=== PATIENT | male | born 1965 | race Caucasian/White ===

== ENCOUNTER 2023-10-08 10:41 | Outpatient (CLI) | payer BC, SELFPAY ==
--- NOTE | ~2023-10-08 | XR_ITS ---
XR knee LT min 4V DATE: 10/08/2023 11:15 INDICATION: Left knee pain TECHNIQUE: [place], [place], [place] and lateral views COMPARISON: None FINDINGS: There is slight periarticular spurring of the patella. No fracture or dislocation or joint effusion. No periosteal reaction or bone destruction. No radiopaq ue intra-articular loose body or chondrocalcinosis. IMPRESSION: Slight patellofemoral osteoarthritis Reviewed, dictated and finalized at location A.
== END 2023-10-08 10:42 ==
LOC: MICIMG 10:42
PROVIDERS: PCP Family Medicine; Visit Provider Family Medicine
DX: M17.12 Unilateral primary osteoarthritis, left knee (principal); G89.29 Other chronic pain
CPT/HCPCS: 73564

== ENCOUNTER 2023-11-10 00:55 | Day surgery (SDC) | payer BC, SELFPAY ==
[2023-10-25 12:53] VITALS: BMI 28.3
[2023-11-10 07:57] VITALS: BP 127/95; PULSE 76; RESP 20; TEMP 36.4; O2SAT 99
[2023-11-10] MEDS: LACTATED RINGERS 1,000 ML 150 ML IV CONT (08:14)
--- NOTE | 2023-11-10 08:37 | P.PNAN_ITS ---
Anes - Initial Pre Proc Eval Procedure: Operation Date: 11/10/23 09:30 Proposed Procedures p Screening Colonoscopy - James Weber DO Date/Time: 11/10/23 08:37 Surgeon: James Weber DO Pre Op Diagnosis: Screening for malignant neoplasm of colon Patient Data Age: 57 Gender: M Height: 1.88 m Weight: 100.2 kg Last Vital Signs Temp 97.6 F 11/10/23 07:57 Pulse 76 11/10/23 07:57 Resp 20 11/10/23 07:57 BP 127/95 H 11/10/23 07:57 Pulse Ox 99 11/10/23 07:57 O2 Del Method Room Air 11/10/23 07:57 Allergies Allergy/AdvReac Type Severity Reaction Status Date / Time No Known Allergies Allergy Verified 11/10/23 07:56 Home Medications Medication Instructions Recorded Confirmed Type No Home Medications 10/25/23 10/25/23 History Patient hx anesthesia problems: none Family hx anesthesia problems: none Results Review: All pre-operative results and documents have been reviewed as part of the pre-op erative evaluation. [facility] Past Medical History Medical History Diverticulosis Normal colonoscopy 2013 Perirectal abscess Surgical History Surgical History History of rectal surgery Family History Family History Father Hypertension Lung cancer Mother No problems noted. Social History Social History (Updated 10/06/23 @ 08:51 by Ashley Lopez) Social History: Smoking status: Never smoker Tobacco type: cigarettes Second hand tobacco smoke exposure: No Smoking end date: 07/04/12 Alcohol intake: never Substance use: never Substance use type: does not use Do You Feel Safe in your Home?: Yes Lack of Transportation: No Lack of Food: Never True Current Housing: I Have Housing Concerned About Future Housing: No Difficulty Paying Gas/Electric Bills: No Difficulty Paying for Meds: No Currently Unemployed: No Education: Don't Know Difficulty w/ Childcare or Family Care: No Living arrangements: with family Occupation/Education: occupation Additional occupation/education comments: Self Employed Gender identity (if verbalized by the patient): Male Sexual Orientation (if Verbalized by the Patient): Straight or Heterosexual Spiritual care concerns: No Anes - Eval Final PreProcedure Day of Procedure 11/10/23 08:37 Patient weight: normal Heart: regular rate and rhythm Lungs: clear to auscultation Airway: Mallampati scale class II Neurological: alert and oriented Last oral intake: >/= 8 hours ASA classification: II Emergent: no Anesthetic plan: proceed Anesthesia type and monitoring: general GIVS and standard monitoring Results Review: All pre-operative results and documents have been reviewed as part of the pre- operative evaluation. Informed Consent: The patient's anesthetic plan and its attendant risks and benefits were discussed with the patient/family/POA. Questions were solicited and answers provided to the satisfaction of the patient/family/POA.
--- NOTE | 2023-11-10 09:18 | PM.IMHP ---
H&P: HPI History of Present Illness Date/Time: 11/10/23 09:18 Chief Complaint: screening for colorectal cancer Narrative: this is a 57-year-old man presents for colonoscopy. His last colonoscopy was about 10 years ago. Denies any hematochezia or melena. Denies family history cancer. Review of Systems Review of Systems: All systems reviewed & are unremarkable except as noted in HPI and below Constitutional: Constitutional: Denies chills, Denies fever(s), Denies headache(s) and Denies weight loss Eyes: Eyes: Denies change in vision ENT: Denies dizziness, Denies headache(s), Denies neck mass and Denies throat swelling Cardiovascular: Cardiovascular: Denies chest pain, Denies lightheadedness and Denies dyspnea Respiratory: Respiratory: Denies cough, Denies dyspnea and Denies wheezing Gastrointestinal: Gastrointestinal: Denies abdominal pain, Denies change in bowel habits, Denies nausea and Denies vomiting Genitourinary: Genitourinary: Denies hematuria and Denies dysuria Musculoskeletal: Musculoskeletal: Reports as per HPI Integumentary/Breasts: Skin/Breast: Reports as per HPI Neurologic: Denies dizziness and Denies headache(s) Allergic/Immunologic: Allergic/Immunologic: Denies throat swelling and Denies wheezing PMFSH Past Medical History Medical History Diverticulosis Normal colonoscopy 2013 Perirectal abscess Surgical History Surgical History History of rectal surgery Family History Family History Father Hypertension Lung cancer Mother No problems noted. Social History Social History (Updated 10/06/23 @ 08:51 by Ashley Lopez) Social History: Smoking status: Never smoker Tobacco type: cigarettes Second hand tobacco smoke exposure: No Smoking end date: 07/04/12 Alcohol intake: never Substance use: never Substance use type: does not use Do You Feel Safe in your Home?: Yes Lack of Transportation: No Lack of Food: Never True Current Housing: I Have Housing Concerned About Future Housing: No Difficulty Paying Gas/Electric Bills: No Difficulty Paying for Meds: No Currently Unemployed: No Education: Don't Know Difficulty w/ Childcare or Family Care: No Living arrangements: with family Occupation/Education: occupation Additional occupation/education comments: Self Employed Gender identity (if verbalized by the patient): Male Sexual Orientation (if Verbalized by the Patient): Straight or Heterosexual Spiritual care concerns: No Meds Home Medications and Allergies Home Medications Medication Instructions Recorded Confirmed Type No Home Medications 10/25/23 10/25/23 History Allergies Allergy/AdvReac Type Severity Reaction Status Date / Time No Known Allergies Allergy Verified 11/10/23 07:56 Vital Signs Vital Signs - 24 hr 11/10/23 07:57 Temperature 36.4 C Pulse Rate 76 Respiratory Rate 20 Blood Pressure 127/95 H Pulse Oximetry 99 Oxygen Delivery Room Air Exam Const: General: no acute distress and alert Orientation/consciousness: patient oriented x3 HENMT: Head: normocephalic and atraumatic Ears: hearing grossly normal bilaterally Face/Nose/Sinus: Normal nares present Mouth: Yes Normal oral and palatal mucosa present Eyes: Periorbital: periorbital findings normal Sclera: sclerae normal EOM: EOMs intact bilaterally Neck: Neck: normal visual inspection, no lymphadenopathy and trachea midline Chest: Chest palpation & inspection: normal inspection of the chest Resp: Effort & Inspection: normal respiratory effort Auscultation: clear to auscultation bilaterally Cardio: Jugular venous distension: no JVD Rate: regular rate Rhythm: regular rhythm Heart sounds: S1 normal heart sound present and S2 normal heart sound present Peripheral pu
[2023-11-10 09:46] VITALS: BP 96/69; PULSE 69; RESP 20; O2SAT 98
[2023-11-10 09:56] VITALS: BP 102/65; PULSE 80; RESP 19; O2SAT 98
[2023-11-10 10:06] VITALS: BP 112/79; PULSE 67; RESP 20; O2SAT 98
== END 2023-11-10 10:14 | disposition home or self-care (01) ==
PROVIDERS: PCP Family Medicine; Visit Provider Surgery
PROC: 0DJD8ZZ Inspection of Lower Intestinal Tract, Via Natural or Artificial Opening Endoscopic (ICD-10-PCS; CPT 45378; principal; 2023-11-10 09:30)
DX: Z12.11 Encounter for screening for malignant neoplasm of colon (principal); K57.30 Diverticulosis of large intestine without perforation or abscess without bleeding; Z98.890 Other specified postprocedural states; Z87.891 Personal history of nicotine dependence; Z80.1 Family history of malignant neoplasm of trachea, bronchus and lung
CPT/HCPCS: 45378; J7120

== ENCOUNTER 2024-01-31 10:40 | Outpatient (CLI) | payer BC, SELFPAY ==
--- NOTE | ~2024-01-31 | XR_ITS ---
XR chest 2V Ordering provider: Maribel Washburn MD History: 58 years Male with . R59.1 - Generalized enlarged lymph nodes . Comparison: None. FINDINGS: MEDIASTINUM: The cardiac silhouette is not enlarged. LUNGS: No infiltrates, effusions or pneumothorax. OTHER: No free air under the diaphragm. IMPRESSION: No acute cardiopulmonary pathology. Reviewed, dictated and finalized at location A.
== END 2024-01-31 10:41 ==
LOC: MICIMG 10:41
PROVIDERS: PCP Family Medicine; Visit Provider Family Medicine
DX: R59.1 Generalized enlarged lymph nodes (principal)
CPT/HCPCS: 71046

== ENCOUNTER 2025-02-22 09:01 | Outpatient (CLI) | payer BC, SELFPAY ==
--- NOTE | ~2025-02-22 | CT_ITS ---
EXAMINATION: CT soft tissue neck wo con COMPARISON: None HISTORY: Localized enlarged lymph nodes TECHNIQUE: Axial images were obtained without IV contrast. Sagittal, coronal reconstruction images were obtained from the axial views. CT scan performed using dose optimization techniques including the following automated exposure control; adjustment of mA and/or kV; use of iterative reconstruction technique. Automatic exposure control was used to reduce radiation dose. Permanent radiation dose record is archived to PACS. FINDINGS: Visualized brain parenchyma appears unremarkable. The optic globes are unremarkable. There is thickening of the prevertebral space or asymmetry of the airway. There is asymmetry of the base of the tongue. There is no asymmetry of the aryepiglottic folds or the vocal cords. No thyroid nodules identified There are multiple enlarged lymph nodes identified within the anterior superior mediastinum in the pretracheal space the largest within the pretracheal space measuring 1.9 x 1.4 cm. There are multiple additional enlarged lymph nodes within the axilla bilaterally, the posterior cervical triangles, the j ugulodigastric spaces, the paranasal submandibular space and the submental space with a dominant lymph node within the right posterior cervical triangle measuring 2 x 1.9 cm. The parapharyngeal spaces are unremarkable. There is no thickening of the esophagus identified. There is no asymmetry of the tonsillar tissue identified The parotid glands demonstrate bilateral probable intraparotid lymph nodes with dominant left-sided intraparotid lymph node measuring 1.5 x 1 cm, distinction from reported lesion however is limited and follow-up is recommended to assess stability. The submandibular glands appear unremarkable. The visualized lungs demonstrate chronic changes with micronodules along the left upper lobe measuring 4 mm. No sclerotic or lytic lesions appreciated. There is no significant sinusitis. IMPRESSION: 1. Lymphadenopathy detailed above concerning for lymphoma. Tissue sampling is recommended. Probable left-sided intraparotid lymph node, distinction from a parotid lesion is limited. Clinically if there is concern contrast-enhanced MRI is recommended otherwise follow-up is suggested to assess stability or resolution. Reviewed, dictated and finalized at location A. IMPRESSION: 1. Lymphadenopathy detailed above concerning for lymphoma. Tissue sampling is r ecommended. Probable left-sided intraparotid lymph node, distinction from a par otid lesion is limited. Clinically if there is concern contrast-enhanced MRI is recommended otherwise follow-up is suggested to assess stability or resolution .
--- NOTE | ~2025-02-22 | CT_ITS ---
EXAMINATION: CT lung screening DATE: 02/22/2025 09:27 INDICATION: Localized enlarged lymph nodes TECHNIQUE: Computed tomography (CT) of the chest was performed without intravenous contrast. The dose-length product was 132.96 mGy-cm. COMPARISON: None FINDINGS: There are a few nonenlarged and borderline enlarged mediastinal and hilar lymph nodes. There are several enlarged bilateral axillary lymph nodes, including a 1.7 cm left axillary lymph node and a 1.3 cm right hilar lymph node. In addition, there is an enlarged 1.7 cm gastrohepatic hepatic lymph node. There are several nonenlarged and borderline enlarged lymph nodes in the visualized upper abdomen. There is a 3.7 cm cyst in the right kidney. There is a too small to characterize low-attenuation lesion in the right lobe of the liver. Spleen is enlarged. Heart is unenlarged. Thoracic aorta is not aneurysmal. Tracheobronchial tree is patent. Mild biapical scarring. 3 mm calcified granuloma in the left lower lobe. There are a few additional subcentimeter calcified granulomas in the lungs. No pulmonary mass. No pneumothorax. No pleural effusion. IMPRESSION: 1. Enlarged bilateral axillary lymph nodes and enlarged gastrohepatic lymph node. In addition, there are several nonenlarged and borderline enlarged mediastinal, hilar and upper abdominal lymph nodes. The findings are nonspecific. Consider lymphoma. A PET/CT is recommended. 2. No pulmonary mass. No pulmonary nodules. 3. Right renal cyst. Reviewed, dictated and finalized at location Q. IMPRESSION: 1. Enlarged bilateral axillary lymph nodes and enlarged gastrohepatic lymph nod e. In addition, there are several nonenlarged and borderline enlarged mediastin al, hilar and upper abdominal lymph nodes. The findings are nonspecific. Consid er lymphoma. A PET/CT is recommended. 2. No pulmonary mass. No pulmonary nodules. 3. Right renal cyst.
== END 2025-02-22 09:02 | disposition home or self-care (01) ==
LOC: MICIMG 09:01
PROVIDERS: PCP Family Medicine; Visit Provider Student in an Organized Health Care Education/Training Program
DX: Z12.2 Encounter for screening for malignant neoplasm of respiratory organs (principal); R59.0 Localized enlarged lymph nodes; Z87.891 Personal history of nicotine dependence; N28.1 Cyst of kidney, acquired
CPT/HCPCS: 70490; 71271